=== PATIENT | female | born 1955 | race Caucasian/White ===

== ENCOUNTER 2020-11-14 11:37 | Emergency (ER) | payer MEDICARE ==
[~2020-11-14] VITALS: Ht 157.5 cm; Wt 57.2 kg
[2020-11-14 11:45] VITALS: BP 113/68
[2020-11-14] MEDS ORDERED: Regeneron EUA 2,400 MG in NS 255 ML IVPB SCH (12:00)
[2020-11-14] MEDS ORDERED: Regeneron EUA MISC ONE (12:00)
--- NOTE | 2020-11-14 12:08 | Emergency Room Report ---
History of Present Illness General Chief Complaint: Flu Like Symptoms Source: Patient Present Illness HPI Disclaimer: Please note that this report is being documented using [employer] technology. This can lead to erroneous entry secondary to incorrect interpretation by the dictating instrument. HPI: 65-year-old female presents for referral by her primary care doctor for monoclonal antibody infusion. She tested positive for COVID-19 approximately 6 days ago. She states she has had mild cough. Denies shortness of breath or fever. No nausea or vomiting. Denies any past medical history. 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 COVID-19 Screening: Positive COVID-19 COVID-19 Testing Source: 11/13/20 Patient History Reviewed Nursing Documentation: PMH: Agreed; PSxH: Agreed Nursing Documentation-PMH Past Medical History: No Stated History Review of Systems All Other Systems: negative except mentioned in HPI Physical Exam Vital Signs Date Time Temp Pulse Resp B/P (MAP) Pulse Ox O2 Delivery O2 Flow Rate FiO2 11/14/20 11:42 99.1 87 16 139/83 (101) 93 Room Air Sp02 EP Interpretation: reviewed, normal General Appearance: well appearing, no apparent distress Head: normocephalic, atraumatic Eyes: bilateral eye PERRL, bilateral eye EOMI ENT: hearing grossly normal, moist mucus membranes Neck: full range of motion, supple Respiratory: lungs clear, normal breath sounds, no rhonchi, no respiratory distress, no retraction, no wheezing Cardiovascular #1: normal peripheral pulses, regular rate, rhythm, no murmur Gastrointestinal: non tender, soft, non-distended, no guarding Neurologic: alert, oriented x3, no focal defects Skin: normal color, warm/dry Medical Decision Making Diagnostic Impression: Primary Impression: COVID-19 ER Course MDM-patient presents for monoclonal antibody infusion. She was diagnosed with COVID-19 6 days ago. She was not hypoxic. She was in no acute distress. Due to her age she did meet criteria due to her high risk for severe disease. Monoclonal antibody infusion was ordered. Patient will require observation after infusion. Patient will be signed out to oncoming physician with plan to continue to observe for 1 hour after infusion with plan for discharge. Last Vital Signs Date Time Temp Pulse Resp B/P (MAP) Pulse Ox O2 Delivery O2 Flow Rate FiO2 11/14/20 11:42 99.1 87 16 139/83 (101) 93 Room Air Disposition: HOME, SELF-CARE Condition: Stable Ramos Mercado M.D. Nov 14, 2020 12:08
--- NOTE | 2020-11-14 12:45 | NUR ---
ED Nurse Note:pt here to get infusion
[2020-11-14 14:01] VITALS: BP 130/70
[2020-11-14 14:08] VITALS: BP 116/78
[2020-11-14 14:39] VITALS: BP 129/67
--- NOTE | 2020-11-14 14:41 | NUR ---
ED Nurse Note:pt appears to be comfortable talking on her phone. pt gave thumbs up and smiled. will continue to monitor.
[2020-11-14 14:57] VITALS: BP 127/77
--- NOTE | 2020-11-14 14:57 | NUR ---
ED Nurse Note: pt completed infusion without any complaints, v/s stable. pt will wait an hour before dc'd.
--- NOTE | 2020-11-14 15:50 | NUR ---
ED Nurse Note:pt has tolerated infusion thus far.
--- NOTE | 2020-11-14 16:06 | NUR ---
ED Nurse Note:pt anxious to leave and keeps coming out of her room. she states she just gets that way sometimes.
--- NOTE | 2020-11-14 16:07 | NUR ---
ER DISCHARGE NOTE: Patient is cleared to be discharged per ERMD, pt is aox4, on room air, with stable vital signs. pt was given dc instructions, pt was able to verbalize understanding, pt id band and iv site removed without complications. pt is able to ambulate with steady gait. pt took all belongings.
== END 2020-11-14 16:08 | disposition home or self-care (01) ==
LOC: EMR 12:10
DX: U07.1 COVID-19 (principal); Z23 Encounter for immunization; R05 Cough
CPT/HCPCS: 96365; 99284